=== PATIENT | male | born 1960 | race Caucasian/White ===

== ENCOUNTER → 2024-04-14 | Outpatient (CLI) | payer MEDICARE, MEDICAID, SELFPAY ==
[2024-04-14 16:33] LABS: Basophils % (Auto) 1 % (0-2.5); Eosinophils # (Auto) 0.2 Thou/mm3 (0.0-0.5); Eosinophils % (Auto) 4 % (0-10); Hematocrit 31.6 % (41.0-53.0); Hemoglobin 9.9 g/dL (13.5-16.0); Immature Granulocytes % (Auto) 0 % (0-0); Immature Granulocytes Auto 0.01 Thou/mm3 (0.00-0.00); Lymphocytes # (Auto) 1.5 Thou/mm3 (1.0-4.8); Lymphocytes % (Auto) 23 % (10-50); Mean Corpuscular HGB Conc 31.3 g/dl (31.0-37.0); Mean Corpuscular Hemoglobin 26.1 pg (25.0-35.0); Mean Corpuscular Volume 83 fL (80-100); Monocytes # (Auto) 0.5 Thou/mm3 (0.0-0.8); Monocytes % (Auto) 7 % (0-12); Neutrophils # (Auto) 4.3 Thou/mm3 (1.8-7.7); Neutrophils % (Auto) 66 % (37-80); Nucleated Red Blood Cell % 0 /100 WBC (0); Platelet Count 307 Thou/mm3 (140-440); RDW Standard Deviation 53.7 fL (35.1-43.9); Red Blood Count 3.79 Miln/mm3 (4.50-5.90); White Blood Count 6.6 Thou/mm3 (3.8-10.6)
[2024-04-14 16:50] LABS: Alanine Aminotransferase 11 U/L (10-49); Albumin, Serum 3.5 gm/dL (3.4-4.8); Albumin/Globulin Ratio 1.5 (1.2-2.2); Alkaline Phosphatase 120 U/L (46-116); Anion Gap 11 (7-16); Aspartate Amino Transferase 12 U/L (0-34); BUN/Creatinine Ratio 30 Ratio (12-20); Bilirubin,Total 0.5 mg/dL (0.3-1.2); Blood Urea Nitrogen 21 mg/dL (9-23); Calcium 8.5 mg/dL (8.3-10.6); Calcium (Corrected) 8.9 mg/dL (8.5-10.1); Chloride 105 mMol/L (98-107); Cholesterol 73 mg/dL (132-200); Creatinine (Component) 0.7 mg/dL (0.6-1.3); Globulin 2.4 gm/dL (2.3-3.5); Glucose 59 mg/dL (74-106); HDL Cholesterol 36 mg/dL (40-60); LDL Cholesterol,Calculated 27 mg/dL (0-130); Osmolality,Calculated 284 (275-295); Potassium 4.3 mMol/L (3.4-5.1); Sodium 142 mMol/L (136-145); Thyroid Stimulating Hormone 1.29 uIU/mL (0.55-4.78); Total Protein 5.9 gm/dL (5.7-8.2); Triglycerides 48 mg/dL (30-150); eGFR > 60 See Note
== END | disposition home or self-care (01) ==
LOC: SLDO 13:41
PROVIDERS: PCP Family Medicine; Referring Provider Family Medicine; Visit Provider Family Medicine
DX: F79 Unspecified intellectual disabilities (principal)
CPT/HCPCS: 36415; 80053; 80061; 84443; 85025

== ENCOUNTER → 2024-04-15 | Outpatient (CLI) | payer MEDICARE, MEDICAID, SELFPAY ==
--- NOTE | 2024-04-15 09:30 | XR_ITS ---
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 FINDINGS: Large amounts of stool throughout the colon IMPRESSION: Large amounts of stool throughout the colon
== END | disposition home or self-care (01) ==
LOC: CDIM 09:25
PROVIDERS: PCP Family Medicine; Referring Provider Surgery; Visit Provider Surgery
DX: Z12.11 Encounter for screening for malignant neoplasm of colon (principal); K59.00 Constipation, unspecified
CPT/HCPCS: 74018; 74280

== ENCOUNTER 2024-04-30 18:46 | Emergency (ER) | payer MEDICARE, MEDICAID, SELFPAY ==
[2024-04-30 18:48] VITALS: BMI 23.9
[2024-04-30 20:28] VITALS: BP 122/85; PULSE 102; RESP 16; TEMP 36.2; O2SAT 95
--- NOTE | 2024-04-30 20:49 | PD.EDRME ---
Rapid Medical Screening Exam [facility] Arrival date/time: 04/30/24 18:46 64M with history of developmental disorder and seizures presents to ED with gross hematuria/bleeding from urethra. Caregiver states this happened about 3 years ago and it was apparently a UTI and constipation because they removed 10 lbs of stool. Chief Complaint: Urogenital-Female Vital signs: Vital Signs Temperature 97.2 F 04/30/24 20:28 Pulse Rate 102 H 04/30/24 20:28 Respiratory Rate 16 04/30/24 20:28 Blood Pressure 122/85 H 04/30/24 20:28 Pulse Oximetry (%) 95 04/30/24 20:28 Oxygen Delivery Method Room Air 04/30/24 20:28
--- NOTE | 2024-04-30 21:11 | PD.EDMALE ---
ED Male Genitalurinary RME/HPI General Chief complaint: Urogenital-Male Stated complaint: BLEEDING FROM URETHRA Time Seen by Provider: 04/30/24 21:11 Arrival date/time: 04/30/24 18:46 RME / HPI RME / HPI Narrative: 04/30/24 18:46 64M with history of developmental disorder and seizures presents to ED with gross hematuria/bleeding from urethra. Caregiver states this happened about 3 years ago and it was apparently a UTI and constipation because they removed 10 lbs of stool. This section includes all my notes and documentations, including HPI, PE, and ED course. Otto Mccoy MD HPI: 64yo male with a history of developmental delay, cerebral palsy, seizures BIB his caregiver here with possible hematuria. Took him to PCP. Prescribed nitrofurantoin for possible UTI without any diagnostic tests and was told to return in 1 to 2 weeks. Caregiver denies any N/V or fevers. No other complaints reported. ROS: All negative except as documented in HPI. Physical Exam: General: Alert. No acute distress when remaining still. Eyes: Conjunctivae and lids clear. ENT: No nasal congestion. Neck: Supple. Heart: RRR. Lungs: No respiratory distress. Good air movement. No rhonchi, wheezing, rales. Abdomen: Soft and nontender. Back: No CVA tenderness. Skin: Warm and dry. Genitalia: At the tip of the urethra, small (0.5 cm) abrasion noted with active bleeding. I reviewed all diagnostic test results. My review of the abdominal CT report is no acute findings. Blood tests and urine tests unremarkable. At this point, diagnoses include penis abrasion. Treatment here included wound care, bacitracin, Cephalexin, and NS. Prescribed Keflex and recommended good wound care. Based on my best medical judgment, made decision no further evaluation or treatment indicated at this time. [facility] staff understands and agrees to the discharge instructions customized and printed, see below. Discharge Instructions from Dr. Mccoy printed for you: 1. After evaluation, skin abrasion at the tip of the penis caused the bleeding. 2. There is no blood in the urine, urinary tract infection, kidney infection, kidney stone, or other very serious condition. 3. Keflex to help prevent infection from the skin abrasion. Wound care as instructed and attached abrasion handout. 4. See a private doctor on 05/06/2024 if not completely better. 5. Seek immediate medical care with worsening bleeding, fever, spreading redness from the abrasion, or with any concerns. Otto Mccoy MD Related Data Home Medications ?Medication ?Instructions ?Recorded ?Confirmed acetaminophen 325 mg tablet 650 mg PO Q6H PRN Pain 08/09/19 02/28/22 (Tylenol) baclofen 10 mg tablet 10 mg PO BID 08/09/19 02/28/22 baclofen 20 mg tablet 20 mg PO QPM 08/09/19 02/28/22 calcium carbonate (Oyster Shell 500 mg PO TID 08/09/19 02/28/22 Calcium 500) clopidogrel 75 mg tablet (Plavix) 75 mg PO QDAY 08/09/19 02/28/22 alendronate 70 mg tablet (Fosamax) 70 mg PO QWEEK 02/28/22 02/28/22 ascorbic acid (vitamin C) 500 mg 500 mg PO TID 02/28/22 02/28/22 tablet calcium carbonate 500 mg PO TID 02/28/22 02/28/22 docusate sodium 250 mg capsule 250 mg PO QDAY 02/28/22 02/28/22 levetiracetam 750 mg tablet 750 mg PO BID 02/28/22 02/28/22 (Keppra) zinc gluconate 50 mg tablet 50 mg PO QDAY 02/28/22 02/28/22 Previous Rx's ?Medication ?Instructions ?Recorded aspirin 81 mg tablet,delayed 81 mg PO QDAY #30 tabs 08/10/19 release (John Low Dose Aspirin) atorvastatin 80 mg tablet 80 mg PO QPM #30 tabs 08/10/19 cephalexin 500 mg capsule 500 mg PO BID 3 days #6 caps 05/01/24 cephalexin 500 mg capsule 500 mg PO BID 3 days #6 caps 05/01/24 Allergies Allergy/AdvReac Type Severity Reaction Status Date / Time No Known Allergies Allergy Verified 04/30/24 18:48 Review of Systems Review of Systems Systems Reviewed: All systems reviewed, normal except as documented Past Medical History Past Medical History NEUROLOGIC: Positive Cerebrovascular Accident, Seizures and Cerebral Palsy CARDIAC: Positive Hypercholesterolemia; Negative Cardiac Disorders or Congestive Heart Failure RESPIRATORY: Negative Chronic Obstructive Pulmonary Disease (COPD) or Asthma GENITOURINARY: Negative Renal Disease MUSCULOSKELETAL: Positive Musculoskeletal Disorders, Arthritis and Osteoporosis ENDOCRINE: Negative Diabetes Mellitus Type 1 or Diabetes Mellitus Type 2 HEMATOLOGIC: Negative Sickle Cell Disease OTHER HISTORY: Positive Developmental Delay Social History SMOKING STATUS: Never smoker SUBSTANCE USE: does not use ED Exam Narrative Physical exam: As noted in HPI. Course Quality Measures none Orders Category Date Time Status Continuous Bladder Irrigation QSHIFT Care 04/30/24 21:13 Completed [place] to [place] Routine Care 04/30/24 21:12 Ordered Saline [Insert IV] NOW Care 04/30/24 21:12 Completed Wound Care [Wound Care] NOW Care 05/01/24 00:[address] abdomen pelvis wo con Stat Exams 04/30/24 21:13 Completed CBC Stat Lab 04/30/24 21:16 Completed CMP [Comprehensive Metabolic Panel] Stat Lab 04/30/24 21:16 Completed Magnesium Stat Lab 04/30/24 21:16 Completed PT [Prothrombin Time with INR] Stat Lab 04/30/24 21:16 Completed PTT [Partial Thromboplastin Time] Stat Lab 04/30/24 21:16 Completed Urinalysis, C/S if Indicated Stat Lab 04/30/24 23:30 Completed Bacitracin Oint pkt Med 05/01/24 00:20 Discontinued 1 gm TOP X1 ONE Sodium Chloride 0.9% 1000 ml [Ns] 1,000 ml Med 04/30/24 21:12 Discontinued IV 999 mls/hr cephALEXin [Keflex] Med 05/01/24 00:23 Discontinued 1,000 mg PO X1 ONE Vital Signs Vital signs: Vital Signs Temperature 97.2 F 04/30/24 20:28 Pulse Rate 102 H 04/30/24 20:28 Respiratory Rate 16 04/30/24 20:28 Blood Pressure 122/85 H 04/30/24 20:28 Pulse Oximetry (%) 95 04/30/24 20:28 Oxygen Delivery Method Room Air 04/30/24 20:28 Urogenital - Male MDM Narrative MDM Narrative:: Scribe Attestation: 04/30/24 - Amira Alvarez am scribing for and in the presence of Dr. Mccoy. 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 Social determinants that could affect healthcare access:: housing (resides in a custodial ([facility])) Patient has the following chronic illnesses:: developmental delay, cerebral palsy, seizures How is presenting disease/condition affected by chronic disease/condition?: uneffected by Evaluation data The following diagnostics were reviewed and interpreted by me:: lab results and radiology exam(s) Lab and/or radiology exams considered but not ordered:: none Interpretation Summary: Normal diagnostics Medications / Prescriptions Medications or Prescriptions considered but not ordered:: none Medication administrations:: Medication Administration History Discontinued Medications Bacitracin (Bacitracin Oint 1 Gm Packet) 1 gm TOP X1 ONE Stop: 05/01/24 00:21 Last Admin: 05/01/24 01:33 Dose: 1 gm Documented By: TASHA Cephalexin HCl (Cephalexin 250 Mg Capsule) 1,000 mg PO X1 ONE Stop: 05/01/24 00:24 Last Admin: 05/01/24 01:45 Dose: 1,000 mg Documented By: TASHA Sodium Chloride (Ns) 1,000 mls @ 999 mls/hr IV .Q1H1M ONE Stop: 04/30/24 22:12 Last Infusion: 04/30/24 23:04 Dose: Infused Documented By: Admin: 04/30/24 22:03 Dose: 999 mls/hr Documented By: TASHA Bacitracin, Cephalexin, NS Consultations Consultation(s) initiated? (list below): No Diagnosis Urogenital Male Differential Diagnosis: urinary tract infection, urethritis, acute retention of urine and other (Hematuria, ureteral stone, pyelonephritis) Most likely diagnosis given after review of the tests above:: Penis abrasion Admission Indicated Admission indicated?: not indicated Explain why admission is indicated or not indicated:: No criteria for admission. Admission Request Was there a request for admission?: No Disposition Plan Disposition Plan: Discharge Discharge Attestation Discharge Attestation: The patient and all family members were given an opportunity to ask questions and understood the discharge instructions. Discharge instructions specifically effects, indications for sooner follow up or return to the emergency department, and the expected course of current diagnosis. Patient condition: Stable Discharge Plan Plan Patient Disposition: HOME (Self Care) Prescriptions/Referrals Prescriptions/Med Rec: New cephalexin 500 mg capsule 500 mg PO BID 3 Days Qty: 6 0RF cephalexin 500 mg capsule 500 mg PO BID 3 Days Qty: 6 0RF No Action acetaminophen [Tylenol] 325 mg Tablet 650 mg PO Q6H PRN (Reason: Pain) clopidogrel [Plavix] 75 mg Tablet 75 mg PO QDAY Rx Instructions: TAKE 1 TABLET BY MOUTH @0700 baclofen 20 mg Tablet 20 mg PO QPM Rx Instructions: TAKE 1 TABLET BY MOUTH ONCE A DAY @1999 calcium carbonate [Oyster Shell Calcium 500] 500 mg calcium (1,250 mg) Tablet 500 mg PO TID Rx Instructions: TAKE 1 TBALET BY MOUTH 3 TIMES A DAY. 1 @0700, @1500, AND @2000 baclofen 10 mg Tablet 10 mg PO BID Rx Instructions: TAKE 1 TABLET BY MOUTH TWICE A DAY @0700 AND @1500 aspirin [John Low Dose Aspirin] 81 mg tablet,delayed release (DR/EC) 81 mg PO QDAY Qty: 30 0RF Rx Instructions: TAKE 1 TABLET BY MOUTH ONCE A DAY @1999 atorvastatin 80 mg tablet 80 mg PO QPM Qty: 30 0RF Rx Instructions: TAKE 1 TABLET BY MOUTH ONCE DAILY @1999 calcium carbonate 500 mg calcium (1,250 mg) tablet 500 mg PO TID alendronate [Fosamax] 70 mg Tablet 70 mg PO QWEEK Rx Instructions: TAKE 1 TABLET BY MOUTH ONCE A WEEK ON THURSDAYS. gIVE 30 MINUTES BEFORE THE MEAL OR BEVERAGE OR MEDICATION OF THE DAY. SIT UP FOR 30 MINUTES. ascorbic acid (vitamin C) 500 mg Tablet 500 mg PO TID zinc gluconate 50 mg Tablet 50 mg PO QDAY levetiracetam [Keppra] 750 mg Tablet 750 mg PO BID Rx Instructions: TAKE 1 TABLET BY MOUTH TWICE A DAY @0700 AND @2000 docusate sodium 250 mg Capsule 250 mg PO QDAY Referrals: Jose Jimenez MD [Primary Care Provider] - In 1 week Problem List Clinical Impression: Penis abrasion Patient/Caregiver Discharge Instructions Discharge Activity: activity as tolerated Education Materials: ED Abrasions Additional Instructions: Discharge Instructions from Dr. Mccoy printed for you: 1. After evaluation, skin abrasion at the tip of the penis caused the bleeding. 2. There is no blood in the urine, urinary tract infection, kidney infection, kidney stone, or other very serious condition. 3. Keflex to help prevent infection from the skin abrasion. Wound care as instructed and attached abrasion handout. 4. See a private doctor on 05/06/2024 if not completely better. 5. Seek immediate medical care with worsening bleeding, fever, spreading redness from the abrasion, or with any concerns. Print Language: Persian Stand Alone Forms: Radha Award Info., Patient Portal Info Letter
--- NOTE | 2024-04-30 21:13 | XR_ITS ---
Examination: CT abdomen and pelvis without contrast. Coronal 3-D reconstructions. Sagittal 2-D reconstructions. Date and time of exam:May 10, 2024 at 1002 hrs. Comparison July 13, 2021 Indications: Onset hematuria today CTDI: vol (mGy): 11/14/2019 DLP: (mGycm): 547 Technique: Axial images of the abdomen have been obtained, 3 mm slice thickness Intravenous contrast material has not been administered. Low dose protocols were performed. One or more of the following dose reduction techniques were used; automated exposure control, adjustment of the mA and/or KV according to patient size, use of iterative reconstruction technique. Findings: No focal liver lesions Stable splenic cyst compared to 2021 Contracted gallbladder Extensive air and stool distended colon No definite pancreatic mass No renal or ureteral calculi, no hydronephrosis Normal appendix Aorta normal size No diverticulitis Very large amounts of fluid in the rectosigmoid Mild hyperdensity in the bladder, suspicious for tiny bladder calculi Severe osteopenia Tiny opacities posterior to the bladder noted on prior imaging Impression: Extensive air and stool and fluid throughout distended colon again noted Normal appendix No renal or ureteral calculi Suspicious for tiny bladder calculi
[2024-04-30 21:34] VITALS: BP 109/78; PULSE 72; RESP 19; TEMP 36.3; O2SAT 95
[2024-04-30 21:34] LABS: Basophils # (Auto) 0.1 Thou/mm3 (0.0-0.2); Basophils % (Auto) 1 % (0-2.5); Eosinophils # (Auto) 0.2 Thou/mm3 (0.0-0.5); Eosinophils % (Auto) 4 % (0-10); Hematocrit 32.2 % (41.0-53.0); Hemoglobin 10.4 g/dL (13.5-16.0); Immature Granulocytes % (Auto) 0 % (0-0); Immature Granulocytes Auto 0.01 Thou/mm3 (0.00-0.00); Lymphocytes # (Auto) 1.5 Thou/mm3 (1.0-4.8); Lymphocytes % (Auto) 25 % (10-50); Mean Corpuscular HGB Conc 32.3 g/dl (31.0-37.0); Mean Corpuscular Hemoglobin 25.5 pg (25.0-35.0); Mean Corpuscular Volume 79 fL (80-100); Monocytes # (Auto) 0.5 Thou/mm3 (0.0-0.8); Monocytes % (Auto) 9 % (0-12); Neutrophils # (Auto) 3.6 Thou/mm3 (1.8-7.7); Neutrophils % (Auto) 61 % (37-80); Nucleated Red Blood Cell % 0 /100 WBC (0); Platelet Count 321 Thou/mm3 (140-440); RDW Standard Deviation 51.1 fL (35.1-43.9); Red Blood Count 4.08 Miln/mm3 (4.50-5.90); White Blood Count 5.9 Thou/mm3 (3.8-10.6)
[2024-04-30 21:44] LABS: Alanine Aminotransferase 10 U/L (10-49); Albumin, Serum 4.4 gm/dL (3.4-4.8); Albumin/Globulin Ratio 1.7 (1.2-2.2); Alkaline Phosphatase 127 U/L (46-116); Anion Gap 11 (7-16); Aspartate Amino Transferase 15 U/L (0-34); BUN/Creatinine Ratio 20 Ratio (12-20); Bilirubin,Total 0.3 mg/dL (0.3-1.2); Blood Urea Nitrogen 16 mg/dL (9-23); Calcium 8.9 mg/dL (8.3-10.6); Calcium (Corrected) 8.9 mg/dL (8.5-10.1); Carbon Dioxide 24.5 mMol/L (20.0-31.0); Chloride 111 mMol/L (98-107); Creatinine (Component) 0.8 mg/dL (0.6-1.3); Estimated Creatinine Clearance 73.1 mL/min (>60); Globulin 2.6 gm/dL (2.3-3.5); Glucose 87 mg/dL (74-106); Magnesium 2.1 mg/dL (1.6-2.6); Osmolality,Calculated 290 (275-295); Sodium 146 mMol/L (136-145); eGFR > 60 See Note
[2024-04-30] MEDS: SODIUM CHLORIDE 0.9% 1000 ML 1,000 ML 999 ML IV (22:03)
[2024-04-30 22:08] LABS: INR 1.1 (0.9-1.3); Partial Thromboplastin Time 29.2 Seconds (22.0-36.0); Prothrombin Time 11.5 Seconds (9.0-12.2)
[2024-04-30 22:13] VITALS: BP 107/78; PULSE 73; RESP 17; TEMP 36.6; O2SAT 98
[2024-04-30 23:00] VITALS: BP 116/71; PULSE 62; RESP 18; TEMP 36.6; O2SAT 100
[2024-04-30 23:35] LABS: Collection Type, Urine Clean Catch; Squamous Epithelial Cell,Urine 0 /hpf (0-5)
[2024-04-30 23:42] LABS: Bilirubin,Urine Negative (Negative); Blood,Urine Negative (Negative); Clarity,Urine Clear (Clear/Hazy); Color,Urine Lt-Yellow (Lt Yel-Yel); Culture Indicated,Urine Not Indicated; Glucose, Urine Negative (Negative); Ketones,Urine Negative (Negative); Leukocyte Esterase,Urine Negative (Negative); Nitrite,Urine Negative (Negative); PH,Urine 6.5 (5.0-7.0); Protein,Urine Negative (Neg - Trace); RBC,Urine 14 /hpf (0-3); Urobilinogen,Urine Negative mg/dL (0.0-1.0); WBC,Urine 1 /hpf (0-5)
[2024-05-01 01:23] VITALS: BP 109/73; PULSE 62; RESP 18; TEMP 36.6; O2SAT 99
[2024-05-01] MEDS: BACITRACIN OINT 1 GM PACKET TOP (01:33)
[2024-05-01] MEDS: cephALEXin 250 MG CAPSULE 1000 MG PO (01:45)
== END 2024-05-01 01:58 | disposition home or self-care (01) ==
PROVIDERS: Physician Assistant; Emergency Provider Emergency Medicine; PCP Family Medicine
DX: S30.812A Abrasion of penis, initial encounter (principal); X58.XXXA Exposure to other specified factors, initial encounter
CPT/HCPCS: 51702; 36415; 74176; 80053; 81001; 83690; 83735; 85025; 85610; 85730; 96360; 99284; J7030; A9270

== ENCOUNTER → 2024-10-21 | Outpatient (CLI) | payer MEDICARE, MEDICAID, SELFPAY ==
[2024-10-21 08:49] LABS: Basophils # (Auto) 0.1 Thou/mm3 (0.0-0.2); Basophils % (Auto) 1 % (0-2.5); Eosinophils # (Auto) 0.3 Thou/mm3 (0.0-0.5); Eosinophils % (Auto) 5 % (0-10); Hematocrit 33.1 % (41.0-53.0); Hemoglobin 10.5 g/dL (13.5-16.0); Immature Granulocytes Auto 0.01 Thou/mm3 (0.00-0.00); Lymphocytes # (Auto) 1.5 Thou/mm3 (1.0-4.8); Lymphocytes % (Auto) 26 % (10-50); Mean Corpuscular HGB Conc 31.7 g/dl (31.0-37.0); Mean Corpuscular Hemoglobin 25.7 pg (25.0-35.0); Mean Corpuscular Volume 81 fL (80-100); Monocytes # (Auto) 0.5 Thou/mm3 (0.0-0.8); Monocytes % (Auto) 9 % (0-12); Neutrophils # (Auto) 3.5 Thou/mm3 (1.8-7.7); Neutrophils % (Auto) 59 % (37-80); Nucleated Red Blood Cell # 0.00 Thou/mm3 (0.00-0.00); Nucleated Red Blood Cell % 0 /100 WBC (0); Platelet Count 219 Thou/mm3 (140-440); RDW Standard Deviation 65.1 fL (35.1-43.9); Red Blood Count 4.09 Miln/mm3 (4.50-5.90); White Blood Count 5.8 Thou/mm3 (3.8-10.6)
[2024-10-21 09:00] LABS: Alanine Aminotransferase 12 U/L (10-49); Albumin, Serum 3.6 gm/dL (3.4-4.8); Albumin/Globulin Ratio 1.7 (1.2-2.2); Anion Gap 7 (7-16); Aspartate Amino Transferase 15 U/L (0-34); BUN/Creatinine Ratio 24 Ratio (12-20); Bilirubin,Total 0.5 mg/dL (0.3-1.2); Blood Urea Nitrogen 19 mg/dL (9-23); Calcium 9.0 mg/dL (8.3-10.6); Calcium (Corrected) 9.3 mg/dL (8.5-10.1); Carbon Dioxide 27.7 mMol/L (20.0-31.0); Chloride 109 mMol/L (98-107); Cholesterol 67 mg/dL (132-200); Creatinine (Component) 0.8 mg/dL (0.6-1.3); Globulin 2.1 gm/dL (2.3-3.5); Glucose 79 mg/dL (74-106); HDL Cholesterol 40 mg/dL (40-60); LDL Cholesterol,Calculated 19 mg/dL (0-130); Osmolality,Calculated 288 (275-295); Potassium 4.5 mMol/L (3.4-5.1); Sodium 144 mMol/L (136-145); Total Protein 5.7 gm/dL (5.7-8.2); Triglycerides 38 mg/dL (30-150); eGFR > 60 See Note
[2024-10-21 09:01] LABS: Alkaline Phosphatase 122 U/L (46-116); Cardiac Risk Estimate 1.7 RATIO (4.0-6.7); Thyroid Stimulating Hormone 2.09 uIU/mL (0.55-4.78)
== END | disposition home or self-care (01) ==
LOC: SLDO 07:56
PROVIDERS: PCP Family Medicine; Referring Provider Family Medicine; Visit Provider Family Medicine
DX: Z01.89 Encounter for other specified special examinations (principal)
CPT/HCPCS: 36415; 80053; 80061; 84443; 85025